=== PATIENT | male | born 1960 | race Hispanic/Latino ===

== ENCOUNTER 2017-08-21 18:23 | Inpatient (IN) | payer MEDICARE ==
[~2017-08-21] VITALS: Ht 160 cm; Wt 130.0 kg
[2017-08-21 20:16] VITALS: BP 132/58
[2017-08-21] MEDS ORDERED: SODIUM CHLORIDE 0.9% 500ML 500 ML IV SCH (21:08)
[2017-08-21] MEDS ORDERED: LIDOCAINE HCL-MPF 1% 2ML VIAL IVP PRN (21:15)
[2017-08-21] MEDS: INSULIN HUMULIN R 100 UNIT/ML 3ML SQ SCH (21:15)
[2017-08-21] MEDS ORDERED: DEXTROSE 50%-WATER 50 ML DISP.SYRIN IV PRN (21:15)
[2017-08-21] MEDS ORDERED: POTASSIUM CHLORIDE 20MEQ/100ML 100 ML IV PRN (21:15)
[2017-08-21] MEDS ORDERED: POTASSIUM CHLORIDE 10% ELIXIR 20 MEQ/15 ML UDCUP PO PRN (21:15)
[2017-08-21] MEDS ORDERED: ONDANSETRON HCL MDV 20ML 2 MG/ML VIAL IV PRN (21:15)
[2017-08-21] MEDS ORDERED: HYDRALAZINE HCL 20 MG/ML VIAL IV PRN (21:15)
[2017-08-21] MEDS ORDERED: POTASSIUM CHLORIDE 20 MEQ ERTAB PO PRN (21:15)
[2017-08-21] MEDS ORDERED: GLUCAGON 1MG KIT 1 MG ML IM PRN (21:15)
[2017-08-21 22:33] LABS: CREATINE KINASE MB 1.9 ng/mL (0.5-3.6); THYROID STIMULATING HORMONE 2.34 uIU/mL (0.36-3.74)
[2017-08-21 23:12] LABS: TROPONIN I 2.09 ng/mL (0.00-0.06)
[2017-08-21 23:26] VITALS: BP 137/73
[2017-08-21] MEDS: IPRATROPIUM/ALBUTEROL SULFATE 3 ML SOLUTION IH SCH (23:49)
[2017-08-21] MEDS: LEVOFLOXACIN 500 MG/D5W 100 ML 100 ML IV SCH (23:59)
[2017-08-22] MEDS: INSULIN HUMULIN R 100 UNIT/ML 3ML SQ SCH ×5 (03:15→21:52)
[2017-08-22 03:42] VITALS: BP 135/61
[2017-08-22 04:00] LABS: HEMATOCRIT 37.5 % (42-54); MEAN CORPUSCULAR HEMOGLOBIN 30.1 pg (27.0-33.0); MEAN CORPUSCULAR HGB CONC 33.5 g/dL (32.0-36.0); MEAN CORPUSCULAR VOLUME 89.9 fL (79-99); NUCLEATED RED BLOOD CELLS 0.1 % (0.0-0.19); PLATELET COUNT (AUTO) 244 K/uL (130-400); RED BLOOD CELL COUNT(AUTO) 4.16 MIL/uL (4.50-6.20); RED CELL DISTRIBUTION WIDTH 13.7 % (11.0-15.5); WHITE BLOOD COUNT (AUTO) 11.7 K/uL (4.8-10.8)
[2017-08-22 04:11] LABS: INR 1.04 (0.85-1.15); PARTIAL THROMBOPLASTIN TIME 30.7 SEC (26.3-35.5); PROTHROMBIN TIME 10.9 SEC (9.6-11.6)
[2017-08-22 04:38] LABS: CREATINE KINASE MB 2.2 ng/mL (0.5-3.6); POTASSIUM 3.8 mmol/L (3.5-5.1)
[2017-08-22 04:56] LABS: TROPONIN I 1.87 ng/mL (0.00-0.06)
[2017-08-22] MEDS: IPRATROPIUM/ALBUTEROL SULFATE 3 ML SOLUTION IH SCH ×4 (05:41→23:00)
[2017-08-22] MEDS ORDERED: NITROGLYCERIN 0.4 MG SL TAB SL PRN (07:30)
[2017-08-22 07:54] LABS: HEMOGLOBIN A1C 10.4 % (4.0-6.0)
[2017-08-22 08:00] VITALS: BP 149/72
[2017-08-22] MEDS ORDERED: CEFTRIAXONE SODIUM 1 GM IVP SCH ×2 (08:45→17:00)
[2017-08-22] MEDS ORDERED: MORPHINE SULFATE 4 MG/1ML SYG IVP PRN ×2 (08:45)
[2017-08-22] MEDS ORDERED: ACETAMINOPHEN-CODEINE 300/30MG TAB PO PRN ×2 (08:45)
[2017-08-22] MEDS ORDERED: GUAIFENESIN-DM 200/20 MG 10 ML PO PRN (08:45)
[2017-08-22] MEDS ORDERED: CEFTRIAXONE 1GM/D5W 50ML 50 ML IV SCH (08:45)
[2017-08-22] MEDS: ENOXAPARIN SODIUM 120 MG/0.8ML SQ SCH ×2 (09:58→21:57)
[2017-08-22] MEDS: FUROSEMIDE 10 MG/ML 2ML VIAL IV SCH ×2 (09:59→21:58)
[2017-08-22] MEDS: FAMOTIDINE/PF 20 MG/2 ML VIAL IV SCH ×2 (09:59→21:57)
[2017-08-22] MEDS: BENZONATATE 100 MG CAPSULE PO SCH ×2 (09:59→16:53)
[2017-08-22] MEDS: LISINOPRIL 5 MG TABLET PO SCH ×2 (10:00→21:58)
[2017-08-22] MEDS: ASPIRIN 81MG TAB.CHEW PO SCH (10:00)
[2017-08-22] MEDS: CLOPIDOGREL BISULFATE 75 MG TAB PO SCH (10:00)
[2017-08-22] MEDS: NITROGLYCERIN 0.2 MG/HR PATCH TD SCH (10:00)
[2017-08-22 11:00] VITALS: BP 160/74
[2017-08-22 13:51] LABS: APPEARANCE,URINE Clear (CLEAR); BILIRUBIN,URINE Negative (NEGATIVE); COLOR,URINE Yellow (YELLOW); GLUCOSE, URINE (UA) 500 mg/dL (NEGATIVE); KETONES,URINE Negative (NEGATIVE); LEUKOCYTE ESTERASE ,URINE Negative (NEGATIVE); NITRATE,URINE Negative (NEGATIVE); OCCULT BLOOD,URINE Negative (NEGATIVE); PH,URINE 5.5 (5.0-8.0); PROTEIN,URINE Negative (NEGATIVE)
[2017-08-22 14:20] LABS: BACTERIA,URINE None Seen /HPF (None Seen); RBC,URINE None Seen /HPF (0-1); SQUAMOUS EPITHELIAL CELL,UR Rare /HPF (0-2); WBC,URINE 0-1 /HPF (0-1)
[2017-08-22 16:00] VITALS: BP 153/67
[2017-08-22] MEDS ORDERED: ACETAMINOPHEN 325 MG TAB ONE (16:42)
[2017-08-22] MEDS ORDERED: ACETAMINOPHEN 325 MG TAB PO PRN (17:00)
[2017-08-22 19:31] VITALS: BP 133/48
[2017-08-22] MEDS ORDERED: ATORVASTATIN CALCIUM 20 MG TABLET PO SCH (21:00)
[2017-08-22] MEDS: LEVOFLOXACIN 500 MG/D5W 100 ML 100 ML IV SCH (21:57)
[2017-08-22 23:31] VITALS: BP 141/64
[2017-08-23] MEDS: BENZONATATE 100 MG CAPSULE PO SCH ×2 (00:45→09:13)
[2017-08-23 03:29] VITALS: BP 134/56
[2017-08-23 04:58] LABS: HEMATOCRIT 38.3 % (42-54); MEAN CORPUSCULAR HGB CONC 33.5 g/dL (32.0-36.0); MEAN CORPUSCULAR VOLUME 89.6 fL (79-99); PLATELET COUNT (AUTO) 245 K/uL (130-400); RED BLOOD CELL COUNT(AUTO) 4.27 MIL/uL (4.50-6.20); RED CELL DISTRIBUTION WIDTH 13.8 % (11.0-15.5); WHITE BLOOD COUNT (AUTO) 8.8 K/uL (4.8-10.8)
[2017-08-23 05:13] LABS: POTASSIUM 3.8 mmol/L (3.5-5.1)
[2017-08-23] MEDS ORDERED: POTASSIUM CHLORIDE 10 MEQ/TAB.SA PO ONE ×4 (05:21→06:56)
[2017-08-23] MEDS: INSULIN HUMULIN R 100 UNIT/ML 3ML SQ SCH (05:51)
[2017-08-23] MEDS: IPRATROPIUM/ALBUTEROL SULFATE 3 ML SOLUTION IH SCH (05:59)
[2017-08-23] MEDS ORDERED: GABA-531 PO (06:31)
[2017-08-23] MEDS ORDERED: CLOP75TA32 PO (06:31)
[2017-08-23] MEDS ORDERED: FLUT1BLS IH (06:47)
[2017-08-23] MEDS ORDERED: NITR0.4T SL (06:47)
[2017-08-23] MEDS ORDERED: RANO500T2 PO (06:47)
[2017-08-23] MEDS ORDERED: CANA300T PO (06:47)
[2017-08-23] MEDS ORDERED: ERGO500014 PO (06:47)
[2017-08-23] MEDS ORDERED: POTA-79 PO (06:47)
[2017-08-23] MEDS ORDERED: LOSA100T29 PO (06:47)
[2017-08-23] MEDS ORDERED: METF10004 PO (06:47)
[2017-08-23] MEDS ORDERED: FURO40TA5 PO (06:47)
[2017-08-23] MEDS ORDERED: PIOG45TA64 PO (06:47)
[2017-08-23] MEDS ORDERED: METO50TA18 PO (06:47)
[2017-08-23] MEDS ORDERED: INSULIN GLARGINE 100 UNITS/ML 10 ML VIAL SQ SCH (07:30)
[2017-08-23 08:00] VITALS: BP 143/58
[2017-08-23] MEDS ORDERED: FUROSEMIDE 40 MG TABLET PO SCH (09:00)
[2017-08-23] MEDS ORDERED: GABAPENTIN 300 MG CAPSULE PO SCH (09:00)
[2017-08-23] MEDS ORDERED: ERGOCALCIFEROL (VITAMIN D2) 50,000 UNIT CAPSULE PO SCH (09:00)
[2017-08-23] MEDS ORDERED: PIOGLITAZONE HCL 45 MG TAB PO SCH (09:00)
[2017-08-23] MEDS ORDERED: POTASSIUM CHLORIDE 20 MEQ ERTAB PO SCH (09:00)
[2017-08-23] MEDS ORDERED: RANOLAZINE 500 MG TAB.SR.12H PO SCH (09:00)
[2017-08-23] MEDS: ENOXAPARIN SODIUM 120 MG/0.8ML SQ SCH (09:13)
[2017-08-23] MEDS: CLOPIDOGREL BISULFATE 75 MG TAB PO SCH (09:14)
[2017-08-23] MEDS: ASPIRIN 81MG TAB.CHEW PO SCH (09:14)
[2017-08-23] MEDS: LISINOPRIL 5 MG TABLET PO SCH (09:15)
[2017-08-23] MEDS: NITROGLYCERIN 0.2 MG/HR PATCH TD SCH (09:16)
[2017-08-23] MEDS: FAMOTIDINE/PF 20 MG/2 ML VIAL IV SCH (09:16)
[2017-08-23] MEDS ORDERED: ALBUTEROL SULFATE 0.083% 2.5 MG/3 ML INH IH SCH (12:00)
[2017-08-23] MEDS ORDERED: METFORMIN HCL 500 MG TABLET PO SCH (17:00)
[2017-08-23] MEDS ORDERED: BUDESONIDE 0.5 MG/2 ML INH IH SCH (18:00)
== END 2017-08-23 10:43 | disposition left against medical advice (07) | DRG 280 ==
LOC: EDHIP 19:50 → 2DH 20:05
PROVIDERS: ADMIT Family Medicine; ATTEND Family Medicine
DX: I44.2 Atrioventricular block, complete (principal); I21.4 Non-ST elevation (NSTEMI) myocardial infarction; I50.31 Acute diastolic (congestive) heart failure; J98.11 Atelectasis; Z68.43 Body mass index [BMI] 50.0-59.9, adult; E66.01 Morbid (severe) obesity due to excess calories; D72.829 Elevated white blood cell count, unspecified; E11.51 Type 2 diabetes mellitus with diabetic peripheral angiopathy without gangrene; E78.5 Hyperlipidemia, unspecified; I11.0 Hypertensive heart disease with heart failure; I25.10 Atherosclerotic heart disease of native coronary artery without angina pectoris; Z79.02 Long term (current) use of antithrombotics/antiplatelets; Z79.84 Long term (current) use of oral hypoglycemic drugs; Z79.899 Other long term (current) drug therapy; Z98.61 Coronary angioplasty status; Z95.1 Presence of aortocoronary bypass graft; Z89.411 Acquired absence of right great toe; Z82.49 Family history of ischemic heart disease and other diseases of the circulatory system
CPT/HCPCS: 36415; 71250; 80048; 80061; 81001; 82550; 82553; 82948; 83036; 83874; 84443; 84484; 85027; 85610; 85730; 87040; 87088; 87633; 87804; 93005; 94640; 94664; A4218; C8929; J0696; J1650; J1815; J1940; J1956; J3490

== ENCOUNTER 2020-10-29 23:01 | Inpatient (IN) | payer MEDICARE ==
[~2020-10-29] VITALS: Ht 157.5 cm; Wt 112.8 kg
[~2020-10-29 23:01] MED LIST: CANA300T PO; CLOP75TA32 PO; ERGO500014 PO; FLUT1BLS IH; FURO40TA5 PO; GABA-531 PO; LOSA100T58 PO; METF-446 PO; METO50TA18 PO; NITR0.4T SL; PIOG45TA64 PO; POTA-79 PO; RANO500T2 PO
[2020-10-29 23:14] VITALS: BP 129/69
[2020-10-29] MEDS ORDERED: ASPIRIN 325 MG TABLET PO ONE (23:30)
[2020-10-29 23:52] LABS: BASOPHILS % (AUTO) 0.6 % (0.0-5.0); EOSINOPHILS % (AUTO) 0.3 % (0.0-8.0); HEMATOCRIT 41.6 % (42-54); LYMPHOCYTES % (AUTO) 19.3 % (21.0-51.0); MEAN CORPUSCULAR HGB CONC 31.3 g/dL (32.0-36.0); MEAN CORPUSCULAR VOLUME 92.9 fL (79-99); MONOCYTES % (AUTO) 10.3 % (3.0-13.0); NEUTROPHILS % (AUTO) 69.2 % (40.0-77.0); PLATELET COUNT (AUTO) 192 K/uL (130-400); RED BLOOD CELL COUNT(AUTO) 4.48 MIL/uL (4.50-6.20); WHITE BLOOD COUNT (AUTO) 10.3 K/uL (4.8-10.8)
[2020-10-30] VITALS (14 sets, daily range): BP systolic 118–156; BP diastolic 58–98
[2020-10-30 00:03] LABS: CREATININE 1.2 mg/dL (0.5-1.5); POTASSIUM 3.7 mmol/L (3.5-5.1)
[2020-10-30 00:04] LABS: INR 1.22 (0.85-1.15); PROTHROMBIN TIME 13.1 SEC (9.6-11.6)
[2020-10-30 00:13] LABS: ALBUMIN 3.4 g/dL (3.5-5.0); BILIRUBIN,TOTAL 1.1 mg/dL (0.2-1.0); MAGNESIUM 1.9 mg/dL (1.80-2.40); TOTAL PROTEIN, SERUM 7.6 g/dL (6.0-8.3)
[2020-10-30 00:22] LABS: B-TYPE NATRIURETIC PEPTIDE 1250 pg/mL (0-100)
[2020-10-30] MEDS ORDERED: FUROSEMIDE 40MG VIAL ONE (01:06)
[2020-10-30] MEDS ORDERED: FUROSEMIDE 40MG VIAL IV ONE (01:30)
[2020-10-30] MEDS ORDERED: ALBUTEROL 0.083% 2.5 MG/3 ML INH IH PRN (06:30)
[2020-10-30] MEDS ORDERED: HYDRALAZINE 20MG/ML VIAL IV PRN (06:30)
[2020-10-30] MEDS ORDERED: HEPARIN 25,000 UNITS/250ML D5W 250 ML IV SCH (06:30)
[2020-10-30 06:43] LABS: APPEARANCE,URINE Clear (CLEAR); BILIRUBIN,URINE Negative (NEGATIVE); COLOR,URINE Yellow (YELLOW); GLUCOSE, URINE (UA) Negative (NEGATIVE); KETONES,URINE Negative (NEGATIVE); LEUKOCYTE ESTERASE ,URINE Negative (NEGATIVE); NITRATE,URINE Negative (NEGATIVE); OCCULT BLOOD,URINE Negative (NEGATIVE); PROTEIN,URINE Negative (NEGATIVE)
[2020-10-30 06:50] LABS: AMPHET/METH SCREEN,URINE NEGATIVE (NEGATIVE); BARBITURATE SCREEN, URINE NEGATIVE (NEGATIVE); BENZODIAZEPINES SCREEN,URINE NEGATIVE (NEGATIVE); CANNABINOID SCREEN,URINE NEGATIVE (NEGATIVE); COCAINE SCREEN,URINE NEGATIVE (NEGATIVE); OPIATE SCREEN,URINE NEGATIVE (NEGATIVE); PHENCYCLIDINE SCREEN,URINE NEGATIVE (NEGATIVE)
[2020-10-30 06:59] LABS: MAGNESIUM 1.9 mg/dL (1.80-2.40); PHOSPHORUS 4.1 mg/dL (2.5-4.9)
[2020-10-30 07:04] LABS: THYROID STIMULATING HORMONE 2.22 uIU/mL (0.36-3.74)
[2020-10-30] MEDS: FUROSEMIDE 20MG VIAL IV SCH ×2 (07:18→15:04)
[2020-10-30] MEDS: FAMOTIDINE 20MG TAB PO SCH ×2 (08:57→21:17)
[2020-10-30] MEDS ORDERED: MAGNESIUM 2GM PREMIX 50ML 50 ML IV PRN (10:30)
[2020-10-30] MEDS ORDERED: LIDOCAINE HCL-MPF 1% 2ML VIAL IV PRN ×2 (10:30)
[2020-10-30] MEDS ORDERED: POTASSIUM CHLORIDE 20MEQ/100ML 100 ML IV PRN ×2 (10:30)
[2020-10-30] MEDS ORDERED: METOPROLOL TARTRATE 25 MG TAB PO SCH (10:30)
[2020-10-30] MEDS ORDERED: GLUCAGON 1MG KIT 1 MG ML IM PRN (10:30)
[2020-10-30] MEDS ORDERED: LACTULOSE 20 GM/30 ML UDCUP PO PRN (10:30)
[2020-10-30] MEDS ORDERED: DEXTROSE 50%-WATER 50 ML DISP.SYRIN IV PRN (10:30)
[2020-10-30] MEDS: NITROGLYCERIN 1GM OINT 1 INCH/1GM TD SCH ×2 (10:37→17:59)
[2020-10-30] MEDS ORDERED: TICAGRELOR 90 MG TABLET PO SCH (11:00)
[2020-10-30] MEDS: INSULIN HUMULIN R 100 UNIT/ML 3ML SQ SCH ×3 (11:30→21:21)
[2020-10-30 14:29] LABS: INR 1.21 (0.85-1.15)
[2020-10-30 14:30] LABS: PARTIAL THROMBOPLASTIN TIME 26.6 SEC (26.3-35.5)
[2020-10-30] MEDS ORDERED: BUMETANIDE 1MG/4ML VIAL IVP SCH (16:00)
[2020-10-30] MEDS ORDERED: PHARMACY COMMUNICATION MISC SCH (16:00)
[2020-10-30] MEDS ORDERED: BUMETANIDE 0.25MG/ML 40ML IV SCH ×2 (16:30→17:30)
[2020-10-30] MEDS: ENOXAPARIN SODIUM 1 MG/KG SQ SCH (21:00)
[2020-10-30] MEDS ORDERED: ATORVASTATIN 40 MG TABLET PO SCH (21:00)
[2020-10-30] MEDS: ATORVASTATIN 40 MG TABLET PO SCH (21:17)
[2020-10-30] MEDS: TICAGRELOR 90 MG TABLET PO SCH (21:17)
[2020-10-30] MEDS: ENOXAPARIN SODIUM 120 MG/0.8ML SQ SCH (21:17)
[2020-10-31] VITALS (7 sets, daily range): BP systolic 111–138; BP diastolic 51–67
[2020-10-31] MEDS: NITROGLYCERIN 1GM OINT 1 INCH/1GM TD SCH ×3 (02:08→18:07)
[2020-10-31 04:47] LABS: HEMATOCRIT 43.7 % (42-54); MEAN CORPUSCULAR HEMOGLOBIN 28.7 pg (27.0-33.0); MEAN CORPUSCULAR HGB CONC 31.1 g/dL (32.0-36.0); MEAN CORPUSCULAR VOLUME 92.2 fL (79-99); RED BLOOD CELL COUNT(AUTO) 4.74 MIL/uL (4.50-6.20); RED CELL DISTRIBUTION WIDTH 15.6 % (11.0-15.5)
[2020-10-31 05:14] LABS: ALBUMIN 3.6 g/dL (3.5-5.0); BILIRUBIN,TOTAL 1.7 mg/dL (0.2-1.0); CREATININE 1.1 mg/dL (0.5-1.5); POTASSIUM 3.3 mmol/L (3.5-5.1); TOTAL PROTEIN, SERUM 8.3 g/dL (6.0-8.3)
[2020-10-31] MEDS: KCL 20 MEQ ERTAB PO PRN ×3 (05:40→14:52)
[2020-10-31] MEDS: INSULIN HUMULIN R 100 UNIT/ML 3ML SQ SCH ×4 (06:42→21:01)
[2020-10-31] MEDS: ENOXAPARIN SODIUM 1 MG/KG SQ SCH ×2 (09:00→21:00)
[2020-10-31] MEDS: FAMOTIDINE 20MG TAB PO SCH ×2 (09:38→20:59)
[2020-10-31] MEDS: ENOXAPARIN SODIUM 120 MG/0.8ML SQ SCH ×2 (09:39→21:00)
[2020-10-31] MEDS: TICAGRELOR 90 MG TABLET PO SCH ×2 (09:39→20:59)
[2020-10-31] MEDS: ASPIRIN 81MG CHEW TAB PO SCH (09:39)
[2020-10-31] MEDS: ATORVASTATIN 40 MG TABLET PO SCH (20:59)
[2020-11-01] MEDS: NITROGLYCERIN 1GM OINT 1 INCH/1GM TD SCH ×3 (02:06→18:39)
[2020-11-01 03:59] VITALS: BP 115/55
[2020-11-01 04:02] LABS: ALBUMIN 3.7 g/dL (3.5-5.0); BILIRUBIN,TOTAL 1.8 mg/dL (0.2-1.0); CREATININE 1.1 mg/dL (0.5-1.5); MAGNESIUM 1.8 mg/dL (1.80-2.40); POTASSIUM 3.5 mmol/L (3.5-5.1); TOTAL PROTEIN, SERUM 8.5 g/dL (6.0-8.3)
[2020-11-01] MEDS: KCL 20 MEQ ERTAB PO PRN (05:43)
[2020-11-01] MEDS: INSULIN HUMULIN R 100 UNIT/ML 3ML SQ SCH ×4 (05:44→20:43)
[2020-11-01 08:03] VITALS: BP 106/64
[2020-11-01] MEDS: ENOXAPARIN SODIUM 1 MG/KG SQ SCH ×2 (09:00→20:06)
[2020-11-01] MEDS: FAMOTIDINE 20MG TAB PO SCH ×2 (09:41→20:42)
[2020-11-01] MEDS: ASPIRIN 81MG CHEW TAB PO SCH (09:41)
[2020-11-01] MEDS: ENOXAPARIN SODIUM 120 MG/0.8ML SQ SCH ×2 (09:41→20:42)
[2020-11-01] MEDS: TICAGRELOR 90 MG TABLET PO SCH ×2 (09:41→20:41)
[2020-11-01 11:35] VITALS: BP 142/62
[2020-11-01 16:16] VITALS: BP 131/54
[2020-11-01 20:08] VITALS: BP 132/64
[2020-11-01] MEDS: ATORVASTATIN 40 MG TABLET PO SCH (20:41)
[2020-11-01 23:25] VITALS: BP 112/51
[2020-11-02] MEDS: NITROGLYCERIN 1GM OINT 1 INCH/1GM TD SCH ×3 (02:34→18:21)
[2020-11-02 03:59] LABS: MEAN CORPUSCULAR HEMOGLOBIN 28.8 pg (27.0-33.0); MEAN CORPUSCULAR VOLUME 92.7 fL (79-99); PLATELET COUNT (AUTO) 230 K/uL (130-400); RED BLOOD CELL COUNT(AUTO) 5.18 MIL/uL (4.50-6.20); RED CELL DISTRIBUTION WIDTH 15.1 % (11.0-15.5); WHITE BLOOD COUNT (AUTO) 7.5 K/uL (4.8-10.8)
[2020-11-02 04:07] VITALS: BP 126/57
[2020-11-02 04:08] LABS: CREATININE 1.1 mg/dL (0.5-1.5); MAGNESIUM 1.8 mg/dL (1.80-2.40); POTASSIUM 3.5 mmol/L (3.5-5.1)
[2020-11-02 04:26] LABS: B-TYPE NATRIURETIC PEPTIDE 878 pg/mL (0-100)
[2020-11-02 04:37] LABS: PLATELET MORPHOLOGY PLT CLUMPS PRESENT
[2020-11-02] MEDS: KCL 20 MEQ ERTAB PO PRN ×2 (06:03→13:40)
[2020-11-02] MEDS: INSULIN HUMULIN R 100 UNIT/ML 3ML SQ SCH ×4 (06:42→19:52)
[2020-11-02 07:56] VITALS: BP 114/60
[2020-11-02] MEDS: TICAGRELOR 90 MG TABLET PO SCH ×2 (10:20→19:56)
[2020-11-02] MEDS: FAMOTIDINE 20MG TAB PO SCH ×2 (10:21→19:56)
[2020-11-02] MEDS: ASPIRIN 81MG CHEW TAB PO SCH (10:21)
[2020-11-02] MEDS: ENOXAPARIN SODIUM 120 MG/0.8ML SQ SCH ×2 (10:22→19:57)
[2020-11-02 11:02] VITALS: BP 133/61
[2020-11-02 15:40] VITALS: BP 123/60
[2020-11-02] MEDS: ATORVASTATIN 40 MG TABLET PO SCH (19:56)
[2020-11-02 20:00] VITALS: BP 124/53
[2020-11-03] VITALS: BP 126/60
[2020-11-03] MEDS: NITROGLYCERIN 1GM OINT 1 INCH/1GM TD SCH ×3 (01:08→17:40)
[2020-11-03 04:00] VITALS: BP 137/61
[2020-11-03 04:44] LABS: HEMATOCRIT 46.6 % (42-54); MEAN CORPUSCULAR HEMOGLOBIN 29.1 pg (27.0-33.0); MEAN CORPUSCULAR HGB CONC 31.8 g/dL (32.0-36.0); MEAN CORPUSCULAR VOLUME 91.7 fL (79-99); RED BLOOD CELL COUNT(AUTO) 5.08 MIL/uL (4.50-6.20); RED CELL DISTRIBUTION WIDTH 14.7 % (11.0-15.5)
[2020-11-03] MEDS: ASPIRIN 81MG CHEW TAB PO SCH (05:01)
[2020-11-03 05:05] LABS: ALBUMIN 3.6 g/dL (3.5-5.0); BILIRUBIN,TOTAL 1.2 mg/dL (0.2-1.0); CREATININE 1.1 mg/dL (0.5-1.5); POTASSIUM 3.1 mmol/L (3.5-5.1); TOTAL PROTEIN, SERUM 8.8 g/dL (6.0-8.3)
[2020-11-03] MEDS: INSULIN HUMULIN R 100 UNIT/ML 3ML SQ SCH ×4 (05:34→21:38)
[2020-11-03] MEDS: BUMETANIDE 2.5MG/10ML VIAL 80 ML IV SCH (06:09)
[2020-11-03 06:13] LABS: INR 1.15 (0.85-1.15); PROTHROMBIN TIME 12.4 SEC (9.6-11.6)
[2020-11-03 06:14] LABS: PARTIAL THROMBOPLASTIN TIME 31.7 SEC (26.3-35.5)
[2020-11-03] MEDS: KCL 20 MEQ ERTAB PO PRN ×3 (06:46→17:34)
[2020-11-03 07:30] VITALS: BP 138/63
[2020-11-03] MEDS: TICAGRELOR 90 MG TABLET PO SCH ×2 (07:54→20:27)
[2020-11-03] MEDS: FAMOTIDINE 20MG TAB PO SCH ×2 (07:54→20:27)
[2020-11-03] MEDS: ENOXAPARIN SODIUM 120 MG/0.8ML SQ SCH ×3 (08:03→22:19)
[2020-11-03 11:00] VITALS: BP 133/70
[2020-11-03 16:00] VITALS: BP 117/67
[2020-11-03] MEDS: POTASSIUM CHLORIDE 10% ELIXIR 20 MEQ/15 ML UDCUP PO PRN ×2 (17:41→20:28)
[2020-11-03] MEDS ORDERED: ONDANSETRON 4MG INJ IVP PRN (18:00)
[2020-11-03 20:00] VITALS: BP 135/56
[2020-11-03] MEDS: ATORVASTATIN 40 MG TABLET PO SCH (20:27)
[2020-11-04] VITALS: BP 130/66
[2020-11-04] MEDS: NITROGLYCERIN 1GM OINT 1 INCH/1GM TD SCH ×3 (00:36→17:26)
[2020-11-04 03:50] LABS: BASOPHILS % (AUTO) 0.6 % (0.0-5.0); EOSINOPHILS % (AUTO) 0.2 % (0.0-8.0); HEMATOCRIT 47.2 % (42-54); LYMPHOCYTES % (AUTO) 16.3 % (21.0-51.0); MEAN CORPUSCULAR HEMOGLOBIN 29.1 pg (27.0-33.0); MEAN CORPUSCULAR HGB CONC 32.4 g/dL (32.0-36.0); MEAN CORPUSCULAR VOLUME 89.7 fL (79-99); MONOCYTES % (AUTO) 15.1 % (3.0-13.0); NEUTROPHILS % (AUTO) 67.5 % (40.0-77.0); PLATELET COUNT (AUTO) 252 K/uL (130-400); RED BLOOD CELL COUNT(AUTO) 5.26 MIL/uL (4.50-6.20); RED CELL DISTRIBUTION WIDTH 14.7 % (11.0-15.5); WHITE BLOOD COUNT (AUTO) 8.8 K/uL (4.8-10.8)
[2020-11-04 03:58] LABS: INR 1.18 (0.85-1.15); PROTHROMBIN TIME 12.7 SEC (9.6-11.6)
[2020-11-04 04:00] VITALS: BP 118/70
[2020-11-04 04:00] LABS: PARTIAL THROMBOPLASTIN TIME 31.7 SEC (26.3-35.5)
[2020-11-04 04:08] LABS: ALBUMIN 3.7 g/dL (3.5-5.0); BILIRUBIN,TOTAL 1.3 mg/dL (0.2-1.0); CREATININE 1.2 mg/dL (0.5-1.5); POTASSIUM 3.2 mmol/L (3.5-5.1); TOTAL PROTEIN, SERUM 8.9 g/dL (6.0-8.3)
[2020-11-04] MEDS: INSULIN HUMULIN R 100 UNIT/ML 3ML SQ SCH ×4 (04:20→20:39)
[2020-11-04] MEDS: KCL 20 MEQ ERTAB PO PRN ×2 (04:26→16:13)
[2020-11-04 07:30] VITALS: BP 131/76
[2020-11-04] MEDS: FAMOTIDINE 20MG TAB PO SCH ×2 (10:41→20:31)
[2020-11-04] MEDS: ASPIRIN 81MG CHEW TAB PO SCH (10:41)
[2020-11-04] MEDS: TICAGRELOR 90 MG TABLET PO SCH ×2 (10:42→20:31)
[2020-11-04 11:00] VITALS: BP 118/68
[2020-11-04 16:00] VITALS: BP 134/68
[2020-11-04] MEDS ORDERED: IOHEXOL-350 75 ML VIAL IV ONE (16:15)
[2020-11-04] MEDS ORDERED: BIVALIRUDIN 250 MG/VIAL IV ONE (16:15)
[2020-11-04] MEDS ORDERED: LIDOCAINE HCL 400MG/20ML VIAL ONE (16:15)
[2020-11-04] MEDS ORDERED: HEPARIN 10,000 UNIT/10ML (1,000 UNIT/ML) VIAL ONE (16:15)
[2020-11-04] MEDS ORDERED: NITROGLYCERIN 2 MG VIAL IV ONE (16:15)
[2020-11-04 19:51] VITALS: BP 123/66
[2020-11-04] MEDS: BUMETANIDE 2.5MG/10ML VIAL 80 ML IV SCH (20:30)
[2020-11-04] MEDS: ATORVASTATIN 40 MG TABLET PO SCH (20:31)
[2020-11-04] MEDS: ENOXAPARIN SODIUM 120 MG/0.8ML SQ SCH (20:40)
[2020-11-05] VITALS (13 sets, daily range): BP systolic 106–141; BP diastolic 55–79
[2020-11-05] MEDS: NITROGLYCERIN 1GM OINT 1 INCH/1GM TD SCH ×3 (02:13→19:31)
[2020-11-05 03:57] LABS: HEMATOCRIT 47.1 % (42-54); MEAN CORPUSCULAR HGB CONC 32.5 g/dL (32.0-36.0); MEAN CORPUSCULAR VOLUME 89.4 fL (79-99); RED BLOOD CELL COUNT(AUTO) 5.27 MIL/uL (4.50-6.20); RED CELL DISTRIBUTION WIDTH 14.7 % (11.0-15.5); WHITE BLOOD COUNT (AUTO) 7.9 K/uL (4.8-10.8)
[2020-11-05 04:07] LABS: CREATININE 1.3 mg/dL (0.5-1.5); POTASSIUM 3.2 mmol/L (3.5-5.1)
[2020-11-05] MEDS: INSULIN HUMULIN R 100 UNIT/ML 3ML SQ SCH ×4 (06:39→21:52)
[2020-11-05] MEDS: ENOXAPARIN SODIUM 120 MG/0.8ML SQ SCH (08:39)
[2020-11-05] MEDS: FAMOTIDINE 20MG TAB PO SCH ×2 (08:47→21:49)
[2020-11-05] MEDS: ASPIRIN 81MG CHEW TAB PO SCH (08:47)
[2020-11-05] MEDS: TICAGRELOR 90 MG TABLET PO SCH ×2 (08:47→21:49)
[2020-11-05] MEDS ORDERED: HEPARIN 10,000 UNIT/10ML (1,000 UNIT/ML) VIAL ONE (11:49)
[2020-11-05] MEDS ORDERED: NITROGLYCERIN 2 MG VIAL IV ONE (11:49)
[2020-11-05] MEDS ORDERED: BIVALIRUDIN 250 MG/VIAL IV ONE (11:49)
[2020-11-05] MEDS ORDERED: IOHEXOL-350 75 ML VIAL IV ONE (11:50)
[2020-11-05] MEDS ORDERED: MIDAZOLAM HCL 1 MG/ML 2ML VIAL ONE (11:50)
[2020-11-05] MEDS ORDERED: LIDOCAINE HCL 400MG/20ML VIAL ONE (11:50)
[2020-11-05] MEDS: 0.9%NACL 10ML VIAL IVP SCH ×2 (14:00→21:50)
[2020-11-05] MEDS: ENTRESTO PO SCH (21:00)
[2020-11-05] MEDS: ATORVASTATIN 40 MG TABLET PO SCH (21:49)
[2020-11-05] MEDS: FUROSEMIDE 40 MG TABLET PO SCH (21:49)
[2020-11-05] MEDS: CARVEDILOL 3.125 MG TABLET PO SCH (21:50)
[2020-11-05] MEDS ORDERED: 0.9% NACL 500ML IV.SOLN 500 ML IV SCH (23:30)
[2020-11-06 00:06] VITALS: BP 131/68
[2020-11-06] MEDS: NITROGLYCERIN 1GM OINT 1 INCH/1GM TD SCH ×2 (02:50→09:19)
[2020-11-06 03:41] LABS: HEMATOCRIT 43.9 % (42-54); MEAN CORPUSCULAR HEMOGLOBIN 28.5 pg (27.0-33.0); MEAN CORPUSCULAR HGB CONC 32.3 g/dL (32.0-36.0); MEAN CORPUSCULAR VOLUME 88.2 fL (79-99); RED BLOOD CELL COUNT(AUTO) 4.98 MIL/uL (4.50-6.20); RED CELL DISTRIBUTION WIDTH 14.6 % (11.0-15.5); WHITE BLOOD COUNT (AUTO) 9.5 K/uL (4.8-10.8)
[2020-11-06 04:04] LABS: CREATININE 1.1 mg/dL (0.5-1.5)
[2020-11-06 04:08] LABS: POTASSIUM 2.9 mmol/L (3.5-5.1)
[2020-11-06] MEDS: KCL 20 MEQ ERTAB PO PRN ×4 (04:30→12:45)
[2020-11-06 04:49] VITALS: BP 117/64
[2020-11-06] MEDS: 0.9%NACL 10ML VIAL IVP SCH ×2 (06:51→14:23)
[2020-11-06] MEDS: INSULIN HUMULIN R 100 UNIT/ML 3ML SQ SCH ×3 (07:00→16:32)
[2020-11-06 08:00] VITALS: BP 119/57
[2020-11-06] MEDS: ENTRESTO PO SCH (09:00)
[2020-11-06] MEDS: FAMOTIDINE 20MG TAB PO SCH (09:15)
[2020-11-06] MEDS: TICAGRELOR 90 MG TABLET PO SCH (09:15)
[2020-11-06] MEDS: ASPIRIN 81MG CHEW TAB PO SCH (09:16)
[2020-11-06] MEDS: CARVEDILOL 3.125 MG TABLET PO SCH (09:16)
[2020-11-06] MEDS: FUROSEMIDE 40 MG TABLET PO SCH (09:19)
[2020-11-06 12:00] VITALS: BP 107/53
[2020-11-06] MEDS ORDERED: CLOP75TA14 PO (15:29)
[2020-11-06] MEDS ORDERED: CARV3.1262 PO (15:29)
[2020-11-06] MEDS ORDERED: ATOR40TA69 PO (15:29)
[2020-11-06] MEDS ORDERED: SACU1TAB PO (15:29)
[2020-11-06] MEDS ORDERED: ASPI-1005 PO (15:29)
[2020-11-06] MEDS ORDERED: FURO40TA7 PO (15:29)
[2020-11-06 16:00] VITALS: BP 122/66
[2020-11-06] MEDS ORDERED: SACUBITRIL/VALSARTAN 1 EACH TABLET PO SCH (21:00)
== END 2020-11-06 19:10 | disposition home or self-care (01) | DRG 280 ==
LOC: EDH 23:12 → EDHIP 10-30 04:08 → OBSVTOIN 10-30 04:08 → INTOOBSV 10-30 04:08 → UNDOADMOB 10-30 04:08 → EDHIP 10-30 17:44 → 4AH 10-30 17:44
PROVIDERS: ADMIT Internal Medicine; ATTEND Internal Medicine
PROC: 4A023N7 Measurement of Cardiac Sampling and Pressure, Left Heart, Percutaneous Approach (ICD-10-PCS; principal; 2020-11-05)
PROC: B2111ZZ Fluoroscopy of Multiple Coronary Arteries using Low Osmolar Contrast (ICD-10-PCS; 2020-11-05)
PROC: B2151ZZ Fluoroscopy of Left Heart using Low Osmolar Contrast (ICD-10-PCS; 2020-11-05)
PROC: B2131ZZ Fluoroscopy of Multiple Coronary Artery Bypass Grafts using Low Osmolar Contrast (ICD-10-PCS; 2020-11-05)
PROC: B2181ZZ Fluoroscopy of Left Internal Mammary Bypass Graft using Low Osmolar Contrast (ICD-10-PCS; 2020-11-05)
DX: T82.898A Other specified complication of vascular prosthetic devices, implants and grafts, initial encounter (principal); I21.4 Non-ST elevation (NSTEMI) myocardial infarction; I50.43 Acute on chronic combined systolic (congestive) and diastolic (congestive) heart failure; Z68.43 Body mass index [BMI] 50.0-59.9, adult; E66.2 Morbid (severe) obesity with alveolar hypoventilation; I11.0 Hypertensive heart disease with heart failure; E10.51 Type 1 diabetes mellitus with diabetic peripheral angiopathy without gangrene; E78.5 Hyperlipidemia, unspecified; I87.2 Venous insufficiency (chronic) (peripheral); E78.00 Pure hypercholesterolemia, unspecified; I25.5 Ischemic cardiomyopathy; I25.10 Atherosclerotic heart disease of native coronary artery without angina pectoris; I25.2 Old myocardial infarction; K59.00 Constipation, unspecified; Z79.02 Long term (current) use of antithrombotics/antiplatelets; Z79.4 Long term (current) use of insulin; Z79.51 Long term (current) use of inhaled steroids; Z79.82 Long term (current) use of aspirin; Z79.899 Other long term (current) drug therapy; Z89.429 Acquired absence of other toe(s), unspecified side; Z91.19 Patient's noncompliance with other medical treatment and regimen; Z95.1 Presence of aortocoronary bypass graft; Y71.8 Miscellaneous cardiovascular devices associated with adverse incidents, not elsewhere classified; Y92.89 Other specified places as the place of occurrence of the external cause
CPT/HCPCS: 36415; 71045; 80048; 80053; 80061; 80305; 81003; 82550; 82948; 83036; 83735; 83880; 84100; 84132; 84439; 84443; 84484; 85025; 85027; 85610; 85730; 93005; 93306; 93356; 93459; 93931; 93971; 94660; 94664; C1769; C1894; G0378; J0583; J1644; J1650; J1815; J1940; J2250; J2405; J3475; J3480; J3490; J7040; Q9967